=== PATIENT | male | born 1960 | race Caucasian/White ===

== ENCOUNTER → 2016-08-13 | Outpatient (REF) | payer OTHER | LOC: M SFHCCLAY 07:16 | PROVIDERS: ATTEND Nurse Practitioner | DX: Z53.8 Procedure and treatment not carried out for other reasons (principal); I10 Essential (primary) hypertension; Z12.5 Encounter for screening for malignant neoplasm of prostate ==

== ENCOUNTER → 2016-08-14 | Outpatient (REF) | payer OTHER ==
[2016-08-14 12:12] LABS: ALBUMIN 3.4 GM/DL (3.2-5.2); ALBUMIN/GLOBULIN RATIO 0.87 (1.00-1.93); ALKALINE PHOSPHATASE 70 U/L (45-117); ALT/SGPT 29 U/L (12-78); ANION GAP 8 MEQ/L (8-16); AST/SGOT 20 U/L (15-37); BILIRUBIN,TOTAL 0.8 MG/DL (0.2-1.0); BLOOD UREA NITROGEN 22 MG/DL (7-18); CALCIUM LEVEL 8.6 MG/DL (8.5-10.1); CARBON DIOXIDE LEVEL 27 MEQ/L (21-32); CHLORIDE LEVEL 103 MEQ/L (98-107); CHOLESTEROL LEVEL 178 MG/DL (<200); CREATININE FOR GFR 1.23 MG/DL (0.70-1.30); GLOMERULAR FILTRATION RATE > 60.0 (>56); GLUCOSE, FASTING 98 MG/DL (70-105); POTASSIUM SERUM 4.1 MEQ/L (3.5-5.1); SODIUM LEVEL 138 MEQ/L (136-145); TOTAL PROTEIN 7.3 GM/DL (6.4-8.2); TRIGLYCERIDES LEVEL 122 MG/DL (<150)
== END ==
LOC: M SFHCCLAY 07:06
PROVIDERS: ATTEND Nurse Practitioner
DX: I10 Essential (primary) hypertension (principal); Z12.5 Encounter for screening for malignant neoplasm of prostate
CPT/HCPCS: 80053; 80061; G0103

== ENCOUNTER → 2016-08-21 | Outpatient (CLI) | payer OTHER ==
--- NOTE | 2016-08-21 19:14 | REP ---
Chest x-ray: Two views: History: Bronchitis. Findings: The lungs are symmetrically aerated and free of infiltrate. The pleural angles are sharp. Heart size is normal. There are mild degenerative changes in the thoracic spine. The aorta shows calcification. There is benign pleural thickening along each lateral chest wall mild in degree. Pulmonary vasculature is not increased. Impression: No active disease.
== END ==
LOC: M CLY 08:05
PROVIDERS: ATTEND Family Medicine
DX: J40 Bronchitis, not specified as acute or chronic (principal)

== ENCOUNTER → 2018-01-23 | Outpatient (REF) | payer OTHER ==
[2018-01-23 13:16] LABS: BASO # 0.1 10^3/uL (0.0-0.2); BASO % 1.3 % (0.0-1.0); EOS # 0.3 10^3/uL (0.0-0.50); EOS % 4.5 % (0.0-3.0); HEMATOCRIT 43.5 % (42.0-52.0); HEMOGLOBIN 14.7 g/dl (13.5-17.5); IMMATURE GRANULOCYTE % 0.4 % (0-3.0); LYMPH # 1.9 10^3/uL (1.5-4.5); LYMPH % 26.4 % (24.0-44.0); MEAN CORPUSCULAR HGB CONC 33.8 g/dl (32.0-36.5); MEAN CORPUSCULAR VOLUME 94.6 fl (80.0-96.0); MONO % 13.8 % (0.0-5.0); NEUTROPHILS # 3.8 10^3/uL (1.8-7.7); NEUTROPHILS % 53.6 % (36.0-66.0); PLATELET COUNT, AUTOMATED 203 10^3/uL (150-450); RED CELL DISTRIBUTION WIDTH 12.7 % (11.5-14.5); WHITE BLOOD COUNT 7.2 10^3/uL (4.0-10.0)
[2018-01-23 13:46] LABS: ESTIMATED AVERAGE GLUCOSE 120 MG/DL (60-110); HEMOGLOBIN A1c 5.8 %
[2018-01-23 13:57] LABS: ALBUMIN 3.8 GM/DL (3.2-5.2); ALBUMIN/GLOBULIN RATIO 0.97 (1.00-1.93); ALKALINE PHOSPHATASE 74 U/L (45-117); ALT/SGPT 33 U/L (12-78); ANION GAP 8 MEQ/L (8-16); AST/SGOT 19 U/L (7-37); BILIRUBIN,TOTAL 0.6 MG/DL (0.2-1.0); BLOOD UREA NITROGEN 20 MG/DL (7-18); CALCIUM LEVEL 9.3 MG/DL (8.5-10.1); CARBON DIOXIDE LEVEL 27 MEQ/L (21-32); CHLORIDE LEVEL 107 MEQ/L (98-107); CHOLESTEROL LEVEL 176 MG/DL (<200); CHOLESTEROL RISK RATIO 3.744 (<5); CREATININE FOR GFR 1.24 MG/DL (0.70-1.30); GLOMERULAR FILTRATION RATE > 60.0 (>56); GLUCOSE, FASTING 87 MG/DL (70-100); HDL CHOLESTEROL 47 MG/DL (>40); LDL CHOLESTEROL 112 MG/DL (<100); NON-HDL-C 129 MG/DL; POTASSIUM SERUM 4.8 MEQ/L (3.5-5.1); SODIUM LEVEL 142 MEQ/L (136-145); TOTAL PROTEIN 7.7 GM/DL (6.4-8.2); TRIGLYCERIDES LEVEL 87 MG/DL (<150)
[2018-01-23 14:01] LABS: MAU/CREAT RATIO 4.5 MCG/MG (0.0-30.0)
== END ==
LOC: M SFHCCLAY 08:46
DX: R73.01 Impaired fasting glucose (principal); I10 Essential (primary) hypertension; K29.60 Other gastritis without bleeding
CPT/HCPCS: 80053

== ENCOUNTER → 2019-05-05 | Outpatient (REF) | payer OTHER ==
[2019-05-05 17:23] LABS: BASO # 0.1 10^3/uL (0.0-0.2); BASO % 0.7 % (0.0-1.0); EOS # 0.3 10^3/uL (0.0-0.5); HEMOGLOBIN 14.9 g/dl (13.5-17.5); LYMPH # 2.1 10^3/uL (1.5-5.0); LYMPH % 20.6 % (24.0-44.0); MEAN CORPUSCULAR HEMOGLOBIN 31.2 pg (27.0-33.0); MEAN CORPUSCULAR HGB CONC 32.4 g/dl (32.0-36.5); MEAN CORPUSCULAR VOLUME 96.4 fl (80.0-96.0); MONO # 1.1 10^3/uL (0.0-0.8); MONO % 10.8 % (0.0-5.0); NEUTROPHILS # 6.6 10^3/uL (1.5-8.5); NEUTROPHILS % 64.4 % (36.0-66.0); PLATELET COUNT, AUTOMATED 215 10^3/uL (150-450); RED BLOOD COUNT 4.77 10^6/uL (4.30-6.10); WHITE BLOOD COUNT 10.2 10^3/uL (4.0-10.0)
[2019-05-05 17:40] LABS: ALBUMIN 3.8 GM/DL (3.2-5.2); ALT/SGPT 28 U/L (12-78); BILIRUBIN,TOTAL 0.8 MG/DL (0.2-1.0); BLOOD UREA NITROGEN 17 MG/DL (7-18); CALCIUM LEVEL 9.2 MG/DL (8.8-10.2); CARBON DIOXIDE LEVEL 26 MEQ/L (21-32); CHLORIDE LEVEL 104 MEQ/L (98-107); CHOLESTEROL LEVEL 198 MG/DL (<200); CHOLESTEROL RISK RATIO 4.714 (<5); CREATININE FOR GFR 1.21 MG/DL (0.70-1.30); GLOMERULAR FILTRATION RATE > 60.0 (>49); GLUCOSE, FASTING 91 MG/DL (70-100); HDL CHOLESTEROL 42 MG/DL (>40); LDL CHOLESTEROL 132 MG/DL (<100); NON-HDL-C 156 MG/DL; POTASSIUM SERUM 3.7 MEQ/L (3.5-5.1); SODIUM LEVEL 138 MEQ/L (136-145); TOTAL PROTEIN 7.8 GM/DL (6.4-8.2); TRIGLYCERIDES LEVEL 120 MG/DL (<150)
[2019-05-05 17:56] LABS: MALB URINE SIEMENS 12.4 MG/L; MAU/CREAT RATIO 5.5 MCG/MG (0.0-30.0)
[2019-05-05 18:06] LABS: HEMOGLOBIN A1c 5.9 %
== END ==
LOC: M SFHCCLAY 13:05
PROVIDERS: ATTEND Nurse Practitioner Family
DX: I10 Essential (primary) hypertension (principal); K29.60 Other gastritis without bleeding; R73.01 Impaired fasting glucose

== ENCOUNTER → 2020-10-05 | Outpatient (REF) | payer OTHER ==
[2020-10-05 14:50] LABS: APPEARANCE, URINE CLEAR (CLEAR); BACTERIA, URINE AUTO NEGATIVE (NEGATIVE); BILIRUBIN, URINE AUTO NEGATIVE (NEGATIVE); BLOOD, URINE BLOOD 1+ (NEGATIVE); COLOR, URINE YELLOW (YELLOW); GLUCOSE, URINE (UA) AUTO NEGATIVE (NEGATIVE); KETONE, URINE AUTO NEGATIVE (NEGATIVE); LEUKOCYTE ESTERASE, URINE AUTO NEGATIVE (NEGATIVE); MUCUS, URINE SMALL (NEGATIVE); NITRITE, URINE AUTO NEGATIVE (NEGATIVE); PROTEIN, URINE AUTO NEGATIVE (NEGATIVE); RBC, URINE AUTO 1 /HPF (0-3); SPECIFIC GRAVITY URINE AUTO 1.019 (1.002-1.035); SQUAMOUS EPITHELIAL CELL UR AU 0 /HPF (0-6); UROBILINOGEN, URINE AUTO 0.2 mg/dL (0.0-2.0); WBC, URINE AUTO 0 /HPF (0-3)
== END ==
LOC: M SMT 13:33
PROVIDERS: ATTEND Nurse Practitioner Women's Health
DX: R31.9 Hematuria, unspecified (principal)

== ENCOUNTER → 2021-01-09 | Outpatient (CLI) | payer OTHER | LOC: M CARPUL 10:52 | PROVIDERS: ATTEND Nurse Practitioner Family | DX: R06.02 Shortness of breath (principal) ==

== ENCOUNTER → 2021-08-02 | Outpatient (REF) | payer OTHER ==
[2021-08-03 11:27] LABS: BASO # 0.1 10^3/uL (0.0-0.2); BASO % 0.7 % (0.0-1.0); EOS # 0.4 10^3/uL (0.0-0.5); EOS % 3.7 % (0.0-3.0); HEMATOCRIT 42.9 % (42.0-52.0); HEMOGLOBIN 14.5 g/dl (13.5-17.5); LYMPH # 2.3 10^3/uL (1.5-5.0); LYMPH % 21.4 % (24.0-44.0); MEAN CORPUSCULAR HEMOGLOBIN 31.7 pg (27.0-33.0); MEAN CORPUSCULAR HGB CONC 33.8 g/dl (32.0-36.5); MEAN CORPUSCULAR VOLUME 93.9 fl (80.0-96.0); MONO % 9.9 % (2.0-8.0); NEUTROPHILS # 6.7 10^3/uL (1.5-8.5); NEUTROPHILS % 63.7 % (36.0-66.0); PLATELET COUNT, AUTOMATED 247 10^3/uL (150-450); RED BLOOD COUNT 4.57 10^6/uL (4.30-6.10); WHITE BLOOD COUNT 10.5 10^3/uL (4.0-10.0)
[2021-08-03 11:40] LABS: ALBUMIN 3.5 GM/DL (3.2-5.2); ALT/SGPT 37 U/L (12-78); BILIRUBIN,TOTAL 0.4 MG/DL (0.2-1.0); BLOOD UREA NITROGEN 18 MG/DL (7-18); CALCIUM LEVEL 9.1 MG/DL (8.8-10.2); CARBON DIOXIDE LEVEL 27 MEQ/L (21-32); CHLORIDE LEVEL 107 MEQ/L (98-107); CHOLESTEROL LEVEL 172 MG/DL (<200); CHOLESTEROL RISK RATIO 6.142 (<5); CREATININE FOR GFR 1.18 MG/DL (0.70-1.30); FREE T4 0.77 NG/DL (0.76-1.46); GLOMERULAR FILTRATION RATE > 60.0 (>49); GLUCOSE, FASTING 132 MG/DL (70-100); HDL CHOLESTEROL 28 MG/DL (>40); LDL CHOLESTEROL 78 MG/DL (<100); NON-HDL-C 144 MG/DL; POTASSIUM SERUM 3.8 MEQ/L (3.5-5.1); SODIUM LEVEL 142 MEQ/L (136-145); TOTAL PROTEIN 7.4 GM/DL (6.4-8.2); TRIGLYCERIDES LEVEL 331 MG/DL (<150)
[2021-08-03 11:53] LABS: HEMOGLOBIN A1c 5.8 %
== END ==
LOC: M SFHCCLAY 14:22
PROVIDERS: ATTEND Nurse Practitioner Family
DX: I10 Essential (primary) hypertension (principal); Z13.1 Encounter for screening for diabetes mellitus

== ENCOUNTER → 2022-08-07 | Outpatient (REF) | payer OTHER ==
[2022-08-07 17:17] LABS: BASO # 0.1 10^3/uL (0.0-0.2); BASO % 0.7 % (0.0-1.0); EOS # 0.3 10^3/uL (0.0-0.5); EOS % 3.8 % (0.0-3.0); HEMATOCRIT 43.8 % (42.0-52.0); HEMOGLOBIN 14.6 g/dl (13.5-17.5); LYMPH # 1.9 10^3/uL (1.5-5.0); LYMPH % 21.4 % (24.0-44.0); MEAN CORPUSCULAR HGB CONC 33.3 g/dl (32.0-36.5); MEAN CORPUSCULAR VOLUME 96.1 fl (80.0-96.0); MONO # 0.9 10^3/uL (0.0-0.8); MONO % 9.7 % (2.0-8.0); NEUTROPHILS # 5.6 10^3/uL (1.5-8.5); NEUTROPHILS % 63.8 % (36.0-66.0); PLATELET COUNT, AUTOMATED 239 10^3/uL (150-450); RED BLOOD COUNT 4.56 10^6/uL (4.30-6.10); WHITE BLOOD COUNT 8.8 10^3/uL (4.0-10.0)
[2022-08-07 17:25] LABS: HEMOGLOBIN A1c 5.9 % (4.0-6.0)
[2022-08-07 17:37] LABS: ALBUMIN 3.3 G/DL (3.2-5.2); ALKALINE PHOSPHATASE 65 U/L (46-116); ALT/SGPT 31 U/L (7.0-40); AST/SGOT 21 U/L (<34); BILIRUBIN,TOTAL 0.5 MG/DL (0.3-1.2); BLOOD UREA NITROGEN 18 MG/DL (9-23); CALCIUM LEVEL 8.8 MG/DL (8.3-10.6); CARBON DIOXIDE LEVEL 27 MMOL/L (20-31); CHLORIDE LEVEL 105 MMOL/L (98-107); CHOLESTEROL LEVEL 166 MG/DL (<200); CHOLESTEROL RISK RATIO 4.43 (<5); CREATININE FOR GFR 1.26 MG/DL (0.70-1.30); GLOMERULAR FILTRATION RATE > 60.0 (>49); GLUCOSE, FASTING 91 MG/DL (74-106); HDL CHOLESTEROL 37.4 MG/DL (>40); NON-HDL-C 128.6 MG/DL; POTASSIUM SERUM 4.2 MMOL/L (3.5-5.1); SODIUM LEVEL 139 MMOL/L (136-145); TOTAL PROTEIN 7.2 G/DL (5.7-8.2); TRIGLYCERIDES LEVEL 113 MG/DL (<150)
[2022-08-07 17:39] LABS: FREE T4 0.75 NG/DL (0.89-1.76); THYROID STIMULATING HORMONE 3.252 uIU/ML (0.55-4.78)
== END ==
LOC: M SFHCCLAY 13:48
PROVIDERS: ATTEND Nurse Practitioner Family
DX: I10 Essential (primary) hypertension (principal); F17.211 Nicotine dependence, cigarettes, in remission; R73.01 Impaired fasting glucose

== ENCOUNTER → 2023-07-29 | Outpatient (REF) | payer MEDICARE, MEDICAID ==
[2023-07-29 18:10] LABS: BASO # 0.1 10^3/uL (0.0-0.2); BASO % 0.8 % (0.0-1.0); EOS # 0.3 10^3/uL (0.0-0.5); EOS % 3.4 % (0.0-3.0); HEMOGLOBIN 15.2 g/dl (13.5-17.5); LYMPH # 1.7 10^3/uL (1.5-5.0); LYMPH % 18.5 % (24.0-44.0); MEAN CORPUSCULAR HEMOGLOBIN 32.6 pg (27.0-33.0); MEAN CORPUSCULAR HGB CONC 33.8 g/dl (32.0-36.5); MEAN CORPUSCULAR VOLUME 96.6 fl (80.0-96.0); MONO % 10.5 % (2.0-8.0); NEUTROPHILS # 6.2 10^3/uL (1.5-8.5); NEUTROPHILS % 66.3 % (36.0-66.0); PLATELET COUNT, AUTOMATED 217 10^3/uL (150-450); RED BLOOD COUNT 4.66 10^6/uL (4.30-6.10); WHITE BLOOD COUNT 9.3 10^3/uL (4.0-10.0)
[2023-07-29 18:39] LABS: ALBUMIN 3.1 G/DL (3.2-5.2); ALKALINE PHOSPHATASE 75 U/L (46-116); ALT/SGPT 35 U/L (7.0-40); AST/SGOT 26 U/L (<34); BILIRUBIN,TOTAL 0.7 MG/DL (0.3-1.2); BLOOD UREA NITROGEN 20 MG/DL (9-23); CARBON DIOXIDE LEVEL 30 MMOL/L (20-31); CHLORIDE LEVEL 103 MMOL/L (98-107); CHOLESTEROL LEVEL 155 MG/DL (<200); CHOLESTEROL RISK RATIO 4.18 (<5); CREATININE FOR GFR 1.17 MG/DL (0.70-1.30); GLOMERULAR FILTRATION RATE > 60.0 (>49); GLUCOSE, FASTING 102 MG/DL (74-106); LDL CHOLESTEROL 85.2 MG/DL (<100); POTASSIUM SERUM 4.4 MMOL/L (3.5-5.1); PSA SCREENING 0.46 NG/ML (< 4.00); SODIUM LEVEL 137 MMOL/L (136-145); TOTAL PROTEIN 7.1 G/DL (5.7-8.2); TRIGLYCERIDES LEVEL 164 MG/DL (<150)
[2023-07-29 18:41] LABS: CREATININE, URINE 170.9 MG/DL; FREE T4 0.83 NG/DL (0.89-1.76); HEMOGLOBIN A1c 5.8 % (4.0-6.0); MAU/CREAT RATIO 2.9 MCG/MG (0.0-30.0)
== END ==
LOC: M SFHCCLAY 08:56
PROVIDERS: ATTEND Nurse Practitioner Family
DX: Z00.00 Encounter for general adult medical examination without abnormal findings (principal); I10 Essential (primary) hypertension; F17.211 Nicotine dependence, cigarettes, in remission; R73.01 Impaired fasting glucose; Z12.5 Encounter for screening for malignant neoplasm of prostate
CPT/HCPCS: 80053; 80061; 82043; 83036; 84439; 84443; 85025; G0103